=== PATIENT | female | born 1985 | race Caucasian/White ===

== ENCOUNTER 2023-09-06 05:15 | Emergency (ER) | payer BC, MEDICAID ==
[~2023-09-06] VITALS: Ht 157.5 cm; Wt 85.7 kg
[2023-09-06 05:43] VITALS: BP_SYST 187; PULSE 110; RESP 20; TEMP 97.6; O2SAT 99
[2023-09-06] MEDS ORDERED: MAGNESIUM SULFATE IN WATER 100 ML IV ONE ×2 (06:00→06:15)
[2023-09-06] MEDS ORDERED: hydrALAZINE HCL 20 MG/ML VIAL IVP ONE (06:00)
[2023-09-06] MEDS ORDERED: MAGNESIUM SULFATE 1 GM/2 ML VIAL ONE (06:02)
[2023-09-06] MEDS ORDERED: hydrALAZINE HCL 20 MG/ML VIAL ONE (06:03)
[2023-09-06 06:05] LABS: BILIRUBIN,URINE NEGATIVE (NEGATIVE); BLOOD, URINE 1+ (NEGATIVE); COLOR,URINE YELLOW (YELLOW); GLUCOSE,URINE NEGATIVE (NEGATIVE); KETONES,URINE NEGATIVE (NEGATIVE); NITRITE, URINE NEGATIVE (NEGATIVE); PROTEIN URINE 2+ (NEGATIVE); UROBILINOGEN,URINE 0.2 (0.2-1.0)
[2023-09-06 06:10] LABS: BASOPHILS % (AUTO) 0.6 % (0.0-2.0); EOSINOPHILS # (AUTO) 0.1 K/uL (0.0-0.4); EOSINOPHILS % (AUTO) 1.3 % (0.0-4.0); HEMATOCRIT 34.3 % (36-48); HEMOGLOBIN 11.6 g/dL (12.0-16.0); LYMPHOCYTES # (AUTO) 1.7 K/uL (1.0-5.5); LYMPHOCYTES % (AUTO) 25.1 % (20.5-51.5); MEAN CORPUSCULAR HEMOGLOBIN 29 pg (27-31); MEAN CORPUSCULAR HGB CONC 34 % (32-36); MEAN CORPUSCULAR VOLUME 84 fL (79.0-98.0); MONOCYTES # (AUTO) 0.8 K/uL (0.0-1.0); MONOCYTES % (AUTO) 11.3 % (1.7-9.3); NEUTROPHILS # (AUTO) 4.1 K/uL (1.8-7.7); NEUTROPHILS % (AUTO) 61.7 % (40.0-70.0); PLATELET COUNT (AUTO) 363 K/uL (130-430); RED BLOOD CELL COUNT(AUTO) 4.08 MIL/uL (4.2-6.2); RED CELL DISTRIBUTION WIDTH 14.7 % (9.0-15.0); WHITE BLOOD COUNT (AUTO) 6.6 K/uL (4.8-10.8)
[2023-09-06] MEDS ORDERED: MAGNESIUM SULFATE 1 GM/2 ML VIAL IV ONE (06:15)
[2023-09-06 06:23] LABS: CLARITY/URINE SLIGHTLY CLOUDY (CLEAR); LEUKOCYTE ESTERASE ,URINE TRACE (NEGATIVE)
[2023-09-06 06:24] LABS: RBC,URINE 20-50 /HPF (0-3)
[2023-09-06 06:25] VITALS: BP_SYST 185; PULSE 103; RESP 20; TEMP 97.6; O2SAT 99
[2023-09-06 06:25] LABS: CREATININE 0.67 mg/dL (0.55-1.30); POTASSIUM 3.7 mmol/L (3.5-5.1)
[2023-09-06 06:25] LABS: BACTERIA,URINE MODERATE /HPF (None Seen)
[2023-09-06 06:31] LABS: ALBUMIN 1.9 g/dL (3.4-4.8); TOTAL BILIRUBIN 0.3 mg/dL (0.0-1.0); TOTAL PROTEIN, SERUM 6.5 g/dL (6.4-8.3)
== END 2023-09-06 06:20 | disposition short-term general hospital (02) ==
LOC: SED 05:15
DX: O15.03 Eclampsia complicating pregnancy, third trimester (principal); O13.3 Gestational [pregnancy-induced] hypertension without significant proteinuria, third trimester; O26.893 Other specified pregnancy related conditions, third trimester; Z3A.38 38 weeks gestation of pregnancy; Z79.899 Other long term (current) drug therapy
CPT/HCPCS: 99291; 96365; 96375; 80053; 81001; 83735; 85025; 87086; 36415; 96368; 81000; 81015; J0360; J3475

== ENCOUNTER 2023-09-25 19:14 | Emergency (ER) | payer BC, OTHER ==
[~2023-09-25] VITALS: Ht 157.5 cm; Wt 76.2 kg
[2023-09-25 19:28] VITALS: BP_SYST 131; PULSE 125; RESP 20; TEMP 101; O2SAT 100
[2023-09-25 20:40] LABS: BASOPHILS % (AUTO) 0.2 % (0.0-2.0); HEMATOCRIT 40.6 % (36-48); HEMOGLOBIN 13.8 g/dL (12.0-16.0); LYMPHOCYTES # (AUTO) 0.6 K/uL (1.0-5.5); LYMPHOCYTES % (AUTO) 5.3 % (20.5-51.5); MEAN CORPUSCULAR HEMOGLOBIN 29 pg (27-31); MEAN CORPUSCULAR HGB CONC 34 % (32-36); MEAN CORPUSCULAR VOLUME 84 fL (79.0-98.0); MONOCYTES # (AUTO) 0.6 K/uL (0.0-1.0); MONOCYTES % (AUTO) 6.1 % (1.7-9.3); NEUTROPHILS # (AUTO) 9.4 K/uL (1.8-7.7); NEUTROPHILS % (AUTO) 88.4 % (40.0-70.0); PLATELET COUNT (AUTO) 389 K/uL (130-430); RED BLOOD CELL COUNT(AUTO) 4.83 MIL/uL (4.2-6.2); RED CELL DISTRIBUTION WIDTH 16.1 % (9.0-15.0); WHITE BLOOD COUNT (AUTO) 10.6 K/uL (4.8-10.8)
[2023-09-25 20:59] LABS: ANION GAP 14 (5-15); CALCIUM 8.8 mg/dL (8.4-11.0); CARBON DIOXIDE 20 mmol/L (23-29); CHLORIDE 100 mmol/L (98-107); CREATININE 1.17 mg/dL (0.55-1.30); GFR AFRICAN AMERICAN 66 mL/min (>90); GLUCOSE 127 mg/dL (74-106); POTASSIUM 3.5 mmol/L (3.5-5.1); SODIUM SERUM 134 mmol/L (136-145); UREA NITROGEN, BLOOD 18 mg/dL (8-21)
[2023-09-25 21:01] LABS: GFR NON AFRICAN-AMERICAN 55 mL/min (>90)
[2023-09-25 21:06] LABS: ALANINE AMINOTRANSFERASE 38 U/L (12-78); ASPARTATE AMINOTRANSFERASE 28 U/L (10-37); BILIRUBIN,DIRECT 0.2 mg/dL (0.0-0.3); LIPASE 20 U/L (16-77); TOTAL BILIRUBIN 0.8 mg/dL (0.0-1.0); TOTAL PROTEIN, SERUM 7.7 g/dL (6.4-8.3)
[2023-09-25] MEDS ORDERED: ACETAMINOPHEN 500 MG TABLET PO ONE (21:30)
[2023-09-25] MEDS ORDERED: NACL 0.9% 1,000 ML IV ONE (22:00)
[2023-09-25 22:33] LABS: COVID19 ANTIGEN SOFIA FIA NEGATIVE (NEGATIVE)
[2023-09-25 22:34] LABS: INFLUENZA TYPE A Negative (NEGATIVE); INFLUENZA TYPE B NEGATIVE (NEGATIVE)
[2023-09-25] MEDS ORDERED: iohexoL 350 mgI/mL, 100 ML INFUS..BTL IV ONE (22:59)
[2023-09-25] MEDS ORDERED: IBUPROFEN 600 MG TABLET PO ONE (23:45)
[2023-09-26] MEDS ORDERED: NACL 0.9% 1,000 ML IV ONE (00:45)
[2023-09-26 05:04] LABS: BILIRUBIN,URINE 1+ (NEGATIVE); BLOOD, URINE 3+ (NEGATIVE); COLOR,URINE YELLOW (YELLOW); GLUCOSE,URINE NEGATIVE (NEGATIVE); KETONES,URINE NEGATIVE (NEGATIVE); LEUKOCYTE ESTERASE ,URINE NEGATIVE (NEGATIVE); NITRITE, URINE NEGATIVE (NEGATIVE); PH,URINE 5.5 (5.0-8.0); PROTEIN URINE 1+ (NEGATIVE); UROBILINOGEN,URINE 0.2 (0.2-1.0)
[2023-09-26 05:17] LABS: CLARITY/URINE SLIGHTLY CLOUDY (CLEAR)
[2023-09-26 05:18] LABS: BACTERIA,URINE None Seen /HPF (None Seen); RBC,URINE 80-100 /HPF (0-3); WBC,URINE 0-3 /HPF (0-3)
[2023-09-26 05:30] VITALS: BP_SYST 118; PULSE 77; RESP 18; TEMP 98.3; O2SAT 97
== END 2023-09-26 05:20 | disposition home or self-care (01) ==
LOC: SED 19:14
DX: R50.9 Fever, unspecified (principal); R55 Syncope and collapse; E86.0 Dehydration; R51.9 Headache, unspecified; I10 Essential (primary) hypertension; Z79.899 Other long term (current) drug therapy; Z20.822 Contact with and (suspected) exposure to COVID-19
CPT/HCPCS: 99285; 96360; 71275; 87426; 80076; 80048; 81001; 83690; 85025; 85379; 84484; 36415; 93005; 87804 ×2; 81000; 96361; 81015; 76376; Q9967; J7030